=== PATIENT | male | born 1985 | race Hispanic/Latino ===

== ENCOUNTER 2016-11-17 12:21 | Emergency (ER) | payer MEDICAID, OTHER ==
[2016-11-17 12:26] VITALS: TEMP 98.2; O2SAT 98
[2016-11-17] MEDS ORDERED: Acetaminophen-Codeine 300/30 mg Tab PO STA (13:20)
[2016-11-17] MEDS ORDERED: Acetaminophen-Codeine 300/30 mg Tab PO ONE (13:28)
--- NOTE | 2016-11-17 13:50 | C.PDOC ---
Time Seen by Provider: 11/17/16 12:42 Chief Complaint (Nursing): Dental Pain Past Medical History Vital Signs: Last Vital Signs Temp 98.2 F 11/17/16 12:26 Pulse 80 11/17/16 12:26 Resp 18 11/17/16 12:26 BP 119/80 11/17/16 12:26 Pulse Ox 98 11/17/16 12:26 - Social History Hx Alcohol Use: No Hx Substance Use: No - Immunization History Hx Tetanus Toxoid Vaccination: No Hx Influenza Vaccination: No Hx Pneumococcal Vaccination: No ED Course And Treatment O2 Sat by Pulse Oximetry: 98 Disposition - Disposition Referrals: [facility] [Outside] Disposition: HOME/ ROUTINE Disposition Time: 13:44 Condition: STABLE Additional Instructions: Follow up with Dentist within 2-3 days. Return to ED if feel worse. Prescriptions: Penicillin VK [Penicillin VK Tab] 500 mg PO Q6H #40 tab Acetaminophen with Codeine [Tylenol with Codeine #3 Tablet] 1 each PO .Q4-6H # 30 tablet Instructions: Toothache (ED) Forms: [employer] (Maldivian)[place], [place] [facility] - Clinical Impression Clinical Impression: Toothache
--- NOTE | 2016-11-17 13:52 | C.PDOC ---
History Of Present Illness 31 year old male presents to the ED with complaints of left lower jaw pain for approximately 2-3 days. Patient denies fever or difficulty swallowing. Time Seen by Provider: 11/17/16 12:42 Chief Complaint (Nursing): Dental Pain History Per: Patient History/Exam Limitations: no limitations Onset/Duration Of Symptoms: Days (2-3 days ) Current Symptoms Are (Timing): Still Present Quality: Positive for: "Pain" Recent travel outside of the [place]: No Past Medical History Reviewed: Historical Data, Nursing Documentation, Vital Signs Vital Signs: Last Vital Signs Temp 98.2 F 11/17/16 12:26 Pulse 80 11/17/16 12:26 Resp 18 11/17/16 12:26 BP 119/80 11/17/16 12:26 Pulse Ox 98 11/17/16 13:53 Family History: States: Unknown Family Hx - Social History Hx Alcohol Use: No Hx Substance Use: No - Immunization History Hx Tetanus Toxoid Vaccination: No Hx Influenza Vaccination: No Hx Pneumococcal Vaccination: No Review Of Systems Constitutional: Negative for: Fever, Chills ENT: Positive for: Other (left lower jaw pain ). Negative for: Ear Pain, Throat Pain, Throat Swelling Gastrointestinal: Negative for: Nausea, Vomiting Neurological: Negative for: Weakness, Numbness, Headache Physical Exam - Physical Exam Appears: Non-toxic, No Acute Distress Skin: Warm, Dry Head: Atraumatic, Normacephalic, No Swelling (no facial swelling ) Eye(s): bilateral: Normal Inspection, PERRL, EOMI Ear(s): Bilateral: Normal, Other (No mastoid tenderness ) Oral Mucosa: Moist Teeth: Other (Poor dentition ) Gingiva: Normal Appearing, No Erythema, No Swelling Throat: Normal, No Erythema, No Exudate Neck: Supple Chest: Symmetrical, No Deformity Cardiovascular: Rhythm Regular Neurological/Psych: Oriented x3, Normal Speech, Normal Cognition, Normal Motor, Normal Sensation ED Course And Treatment O2 Sat by Pulse Oximetry: 98 (room air ) Progress Note: Patient was given Penicillin VK and Tylenol with codeine. Disposition - Disposition Referrals: [facility] [Outside] Disposition: HOME/ ROUTINE Disposition Time: 13:44 Condition: STABLE Additional Instructions: Follow up with Dentist within 2-3 days. Return to ED if feel worse. Prescriptions: Penicillin VK [Penicillin VK Tab] 500 mg PO Q6H #40 tab Acetaminophen with Codeine [Tylenol with Codeine #3 Tablet] 1 each PO .Q4-6H # 30 tablet Instructions: Toothache (ED) Forms: [facility], [facility] ([place]) - Clinical Impression Clinical Impression: Toothache - Scribe Statement The provider has reviewed the documentation as recorded by the Scribe Josephine Luther All medical record entries made by the Scribe were at my direction and personally dictated by me. I have reviewed the chart and agree that the record accurately reflects my personal performance of the history, physical exam, medical decision making, and the department course for this patient. I have also personally directed, reviewed, and agree with the discharge instructions and disposition.
[2016-11-17 14:00] VITALS: BP 121/75; PULSE 84; RESP 16
== END 2016-11-17 13:59 | disposition home or self-care (01) ==
LOC: C.ER 12:21
DX: K08.89 Other specified disorders of teeth and supporting structures (principal)

== ENCOUNTER 2017-08-17 12:27 | Emergency (ER) | payer MEDICAID, OTHER ==
[2017-08-17 12:37] VITALS: BP 112/72; PULSE 82; RESP 16; TEMP 98; O2SAT 98
--- NOTE | 2017-08-17 12:51 | C.PDOC ---
History Of Present Illness 22-year-old male, comes in for evaluation of a rash that started two days ago. Patient states he was soaking wet from the rain two days ago, after which he noted a pruritic rash on trunk and extremities. No medication taken to relieve symptoms. Denies any shortness of breath, nausea/vomiting, throat swelling, or any other associated symptoms. No other complaints at this time. Time Seen by Provider: 08/17/17 12:47 Chief Complaint (Nursing): Abnormal Skin Integrity History Per: Patient History/Exam Limitations: no limitations Onset/Duration Of Symptoms: Days (2) Current Symptoms Are (Timing): Still Present Quality Of Symptoms: Itching Severity: Mild Past Medical History Reviewed: Historical Data, Nursing Documentation, Vital Signs Vital Signs: Last Vital Signs Temp 98 F 08/17/17 12:35 Pulse 82 08/17/17 12:35 Resp 16 08/17/17 12:35 BP 112/72 08/17/17 12:35 Pulse Ox 98 08/17/17 14:14 Family History: States: No Known Family Hx - Social History Hx Alcohol Use: No Hx Substance Use: No - Immunization History Hx Tetanus Toxoid Vaccination: No Hx Influenza Vaccination: No Hx Pneumococcal Vaccination: No Review Of Systems Constitutional: Negative for: Fever ENT: Negative for: Throat Swelling Cardiovascular: Negative for: Chest Pain Respiratory: Negative for: Shortness of Breath Skin: Positive for: Rash Physical Exam - Physical Exam Appears: Non-toxic, No Acute Distress Skin: Warm, Dry, Rash (scattered erythematous papules to trunk and extremities. Sparing palms and soles. ) Head: Atraumatic, Normacephalic Eye(s): bilateral: Normal Inspection, PERRL, EOMI Ear(s): Bilateral: Normal Nose: Normal Oral Mucosa: Moist Tongue: Normal Appearing, No Swelling Lips: Normal Appearing, No Swelling Throat: No Erythema, No Drooling Neck: Normal ROM, Supple Chest: Symmetrical Cardiovascular: Rhythm Regular, No Murmur Respiratory: Normal Breath Sounds, No Accessory Muscle Use Extremity: Normal ROM, No Deformity, No Swelling Neurological/Psych: Oriented x3, Normal Speech ED Course And Treatment O2 Sat by Pulse Oximetry: 98 (RA) Pulse Ox Interpretation: Normal Medical Decision Making Medical Decision Making: Impression: Heat rash Patient will be discharged home with Rx for Triamcinolone cream. Instructed to f /u with PMD in 1-2 days. Disposition Counseled Patient/Family Regarding: Studies Performed, Diagnosis, Need For Followup, Rx Given - Disposition Referrals: [facility] [Outside] [facility] [Outside] Disposition: HOME/ ROUTINE Disposition Time: 12:51 Condition: STABLE Additional Instructions: TAKE KENY 180 MG EVERY MORNING AND IF NEEDED BENADRYL 25 MG AT BED TIME FOR ITCH. FOLLOW UP WITH PMD/CLINIC NEXT WEEK FOR RE-EVALUATION. IF SYMPTOMS GET WORSE OR ANY NEW CONCERNING SYMPTOMS DEVELOP RETURN TO ED. Prescriptions: Triamcinolone 0.1% [Triamcinolone 0.1% Cream] 1 apful TP BID #60 g Instructions: Heat Rash (Prickly Heat) Forms: [facility] (Djiboutian), General Discharge Instructions - Clinical Impression Clinical Impression: Heat rash - Scribe Statement The provider has reviewed the documentation as recorded by the Scribe (Opal Fong) All medical record entries made by the Scribe were at my direction and personally dictated by me. I have reviewed the chart and agree that the record accurately reflects my personal performance of the history, physical exam, medical decision making, and the department course for this patient. I have also personally directed, reviewed, and agree with the discharge instructions and disposition.
== END 2017-08-17 13:17 | disposition home or self-care (01) ==
LOC: C.ER 12:27
DX: L74.0 Miliaria rubra (principal)

== ENCOUNTER 2017-08-18 08:46 | Emergency (ER) | payer OTHER ==
[2017-08-18 08:53] VITALS: BP 122/76; PULSE 87; RESP 18; TEMP 97.9; O2SAT 99
--- NOTE | 2017-08-18 10:03 | C.PDOC ---
History Of Present Illness 32 y/o undomiciled male presents to the ED for a rash. Patient states he was seen yesterday for a rash here at the ED that was found to be pleuritic. The rash began 2 days prior to yesterdays visit when he was caught in the rain. He was sent home with the medication Triamcinolone cream. After using the cream he felt a burning sensation to the hand and feet along with numbness to the lips. This prompted his visit to the ED. He denies any fever, chills, nausea, and vomiting. PMD: none provided Time Seen by Provider: 08/18/17 09:12 Chief Complaint (Nursing): Allergic Reaction History Per: Patient History/Exam Limitations: no limitations Onset/Duration Of Symptoms: Days Current Symptoms Are (Timing): Still Present Possible Cause: Medication Associated Symptoms: Other (burning) Home/EMS Treatment: None Recent travel outside of the [place]: No Past Medical History Reviewed: Historical Data, Nursing Documentation, Vital Signs Vital Signs: Last Vital Signs Temp 97.9 F 08/18/17 08:48 Pulse 87 08/18/17 08:48 Resp 18 08/18/17 08:48 BP 122/76 08/18/17 08:48 Pulse Ox 99 08/18/17 10:06 - Medical History PMH: No Chronic Diseases Surgical History: No Surg Hx Family History: States: Unknown Family Hx - Social History Hx Tobacco Use: No Hx Alcohol Use: No Hx Substance Use: No - Immunization History Hx Tetanus Toxoid Vaccination: No Hx Influenza Vaccination: No Hx Pneumococcal Vaccination: No Review Of Systems Except As Marked, All Systems Reviewed And Found Negative. Constitutional: Negative for: Fever, Chills Gastrointestinal: Negative for: Nausea, Vomiting Skin: Positive for: Rash, Other (burning sensation from medication cream) Physical Exam - Physical Exam Appears: Non-toxic, No Acute Distress Skin: No Normal Color (full body hives mainly to inner thighs and inner arms and back with excoriations as well) Head: Atraumatic Eye(s): bilateral: Normal Inspection, PERRL, EOMI Oral Mucosa: Other (normal appearing) Lips: Normal Appearing Respiratory: Normal Breath Sounds Neurological/Psych: Oriented x3 (awake and alert) ED Course And Treatment O2 Sat by Pulse Oximetry: 99 (RA) Pulse Ox Interpretation: Normal Medical Decision Making Medical Decision Making: Time: 08:48 Impression: Hives, allergic reaction Initial Plan: * Benadryl 50 mg PO * Pepcid 60 mg PO * Prednisolone 40 mg PO Scribe Attestation: Documented by Antonia Raya acting as a scribe Zain Freeman MD. Scribchelsie Attestation: All medical record entries made by the Scribe were at my direction and personally dictated by me. I have reviewed the chart and agree that the record accurately reflects my personal performance of the history, physical exam, medical decision making, and the department course for this patient. I have also personally directed, reviewed, and agree with the discharge instructions and disposition. Disposition Counseled Patient/Family Regarding: Diagnosis, Rx Given - Disposition Referrals: [facility] [Outside] Disposition: HOME/ ROUTINE Disposition Time: 10:00 Condition: STABLE Additional Instructions: Follow up in the clinic. Take medications as indicated. Take one sadiq and 60 mg of Prednisone in the morning. Take 50 mg of Benadryl at night. Prescriptions: DiphenhydrAMINE [Benadryl] 50 mg PO HS #5 cap Fexofenadine HCl [SadiqNf] 180 mg PO DAILY #20 tab Prednisone [Deltasone] 60 mg PO DAILY #12 tablet Instructions: Hives Forms: General Discharge Instructions - POA Present On Arrival: None - Clinical Impression Clinical Impression: Allergic urticaria
== END 2017-08-18 10:17 | disposition home or self-care (01) ==
LOC: C.ER 08:46
DX: L50.0 Allergic urticaria (principal)

== ENCOUNTER 2018-05-28 09:56 | Emergency (ER) | payer OTHER ==
[2018-05-28 10:21] VITALS: BP 116/78; PULSE 81; RESP 20; TEMP 98.1; O2SAT 98
--- NOTE | 2018-05-28 11:23 | C.PDOC ---
History Of Present Illness 32 y/o male presents to the ER complaining of new onset of right foot blister which has been present since yesterday. Patient states that the blister is on the bottom of the foot. Patient reports that he has to walk for long periods of time during his work. He notes that he had initially had fluid which resolved. Denies having trauma, discharge, redness,fever and chills. Time Seen by Provider: 05/28/18 11:14 Chief Complaint (Nursing): Lower Extremity Problem/Injury History Per: Patient History/Exam Limitations: no limitations Onset/Duration Of Symptoms: Days Current Symptoms Are (Timing): Still Present Severity: Moderate Past Medical History Reviewed: Historical Data, Nursing Documentation, Vital Signs Vital Signs: Last Vital Signs Temp 98.1 F 05/28/18 10:16 Pulse 81 05/28/18 10:16 Resp 20 05/28/18 10:16 BP 116/78 05/28/18 10:16 Pulse Ox 98 05/28/18 10:16 - Medical History PMH: No Chronic Diseases Surgical History: No Surg Hx Family History: States: No Known Family Hx - Social History Hx Tobacco Use: No Hx Alcohol Use: Yes (history of drinking) Hx Substance Use: No - Immunization History Hx Tetanus Toxoid Vaccination: No Hx Influenza Vaccination: No Hx Pneumococcal Vaccination: No Review Of Systems Except As Marked, All Systems Reviewed And Found Negative. Constitutional: Negative for: Fever, Chills Skin: Positive for: Other (right foot blister) Physical Exam - Physical Exam Appears: Non-toxic, No Acute Distress Skin: Warm, Dry, Other (dehisced deroofed blister to bottom of right forefoot, no surrounding erythema, no discharge) Head: Atraumatic, Normacephalic Eye(s): bilateral: Normal Inspection Extremity: Normal ROM Extremity: Left: Atraumatic (left foot) Neurological/Psych: Oriented x3, Normal Speech ED Course And Treatment O2 Sat by Pulse Oximetry: 98 (RA) Pulse Ox Interpretation: Normal Medical Decision Making Medical Decision Making: Plan: --Wound Care Updates: Patient states that he has family hx of diabetes, however he denies having PMhx of diabetes. Patient was offered finger stick, he declined because he is afraid of needles. Patient has been instructed about wound care. Patient has been discharged and instructed to follow up with podiatry. Disposition Counseled Patient/Family Regarding: Diagnosis, Need For Followup - Disposition Referrals: [facility] [Outside] [facility] [Outside] Stephanie Oconnell DPM [Staff Provider] - Disposition: HOME/ ROUTINE Disposition Time: 11:34 Condition: IMPROVED Additional Instructions: WOUND CARE INSTRUCTED 2-3X/DAY. FOLLOW UP PODIATRY Instructions: [facility] ([place]) Forms: [facility] (Egyptian), Work Excuse - Clinical Impression Clinical Impression: Blister of foot - Scribe Statement The provider has reviewed the documentation as recorded by the Scribe Leidy Moeller Provider Attestation: All medical record entries made by the Scribe were at my direction and personally dictated by me. I have reviewed the chart and agree that the record accurately reflects my personal performance of the history, physical exam, medical decision making, and the department course for this patient. I have also personally directed, reviewed, and agree with the discharge instructions and disposition.
== END 2018-05-28 11:47 | disposition home or self-care (01) ==
LOC: C.ER 09:56
DX: S90.821A Blister (nonthermal), right foot, initial encounter (principal); X58.XXXA Exposure to other specified factors, initial encounter